=== PATIENT | female | born 2000 | race Two or more races ===

== ENCOUNTER 2025-02-09 14:32 | Emergency (ER) | payer SELFPAY ==
--- NOTE | ~2025-02-09 | XR_ITS ---
EXAMINATION: XR HAND, LEFT CLINICAL INFORMATION: laceration COMPARISON: None available. TECHNIQUE: PA, lateral, and oblique views of the left hand. FINDINGS: No fracture, dislocation, or suspicious bone lesion. There is normal alignment. There are normal joint spaces. No soft tissue abnormality or radiopaque foreign body. Bandaging material overlying the base of the thumb. XR/XR hand LT min 3V IMPRESSION: No acute bony or soft tissue abnormality. No radiopaque foreign body seen. Electronically signed by: Willem Mittal MD 02/09/2025 03:36 PM EDT
[2025-02-09 14:36] VITALS: BP 107/77; PULSE 100; RESP 18; TEMP 36.4; O2SAT 100; BMI 27.4
--- NOTE | 2025-02-09 14:37 | ED.SKABFB ---
HPI - Skin/Abscess/Foreign Bdy General Chief complaint: Wound/Laceration Stated complaint: L Hand Lac Time Seen by Provider: 02/09/25 22:10 Source: patient Mode of arrival: ambulatory Limitations: no limitations History of Present Illness ED Provider: Dr. Viki Ceballos HPI narrative: patient comes to the emergency room complaining of a laceration to the left hand. According to the patient, she was caring her son and at the symptoms she was trying to cut some things with some knives. Patient states that she did not realize how sharp the knives were. Patient accidentally lacerated the palmar and lateral aspect of the hand. Patient states that she has not Aware if she is up-to-date with her Tdap booster. Patient denies any other injuries. Related Data Allergies Allergy/AdvReac Type Severity Reaction Status Date / Time ibuprofen (From Motrin) Allergy Hives Verified 02/09/25 14:37 Review of Systems Review of Systems: Constitutional : No Weight loss, No Fever, No Chills, No Night Sweats, No Fatigue, No Malaise ENT/Mouth : No Hearing loss, No Ear Pain, No Nasal Congestion, No Sinus Pain, No Hoarseness, No sore throat, No Rhinorrhea, No Swallowing Difficulty Eyes: No Eye Pain, No Swelling, No Redness, No Foreign Body, No Discharge, No Vision Changes Cardiovascular : No Chest Pain, No SOB, No Dyspnea on Exertion, No Orthopnea, No Edema, No Palpitations Respiratory : No Cough, No Sputum, No Wheezing, No Smoke Exposure, No Dyspnea Gastrointestinal : No Nausea, No Vomiting, No Diarrhea, No Constipation, No abdominal Pain, No Hematochezia, No Melena Genitourinary : no irregular bleeding, No Dysuria, No Urinary Frequency, No Hematuria, No Urinary Incontinence, No Urgency, No Flank Pain, No Urinary Flow Changes, No Hesitancy Musculoskeletal : No joint pain, No Myalgias, No Joint Swelling Skin : Complaining of a laceration to the palmar / lateral aspect of the left hand Neuro : No Weakness, No Numbness, No Paresthesias, No Loss of Consciousness, No Dizziness, No Headache Psych : No Anxiety/Panic, No Depression, No SI/HI/AH/VH, No Social Issues, Heme/Lymph: No Bruising, No Bleeding,No Lymphadenopathy Endocrine : No Polyuria, No Polydipsia, No Temperature Intolerance PMFSH Social History Social History Advance Directives: No Advance Directives Information Provided: No Physical Exam Vital Signs: Vital Signs: Last Vital Signs Temp 98.3 F 02/09/25 21:14 Pulse 76 02/09/25 21:14 Resp 18 02/09/25 14:36 BP 96/59 L 02/09/25 21:14 Pulse Ox 98 02/09/25 21:14 O2 Del Method Room Air 02/09/25 21:14 BMI result Body Mass Index 27.4 Const: Other: Appearance: Alert. Oriented X3. No acute distress. Eyes: Pupils equal, round and reactive to light. ENT: Pharynx normal. Neck: Normal inspection. Neck supple. No lymph nodes noted. No crepitus CVS: Normal heart rate and rhythm. Pulses normal. Normal S1 and S2 Respiratory: No respiratory distress. Breath sounds normal. No Wheezing. No rales Abdomen: Soft and nontender. No rigidity. No distention. Skin: Skin warm and dry. Normal skin color. Normal skin turgor. patient has a laceration, 5 cm to the palmar/ lateral aspect of the left hand, there is some subcutaneous tissue. Extremities: No lower extremity edema. No Lacerations. No Rash . Patient is able to flex and extend all fingers, bleeding controlled. Neuro: Oriented X 3. No motor deficit. No sensory deficit. Moving all extremities. No slurred speech. CN 2 through 12 grossly intact Psych: calm, cooperative, normal affect Course Course Course Narrative: This is an RME: Additional HPI, ROS, PE not included below will be deferred to primary provider. RME assessment and note performed by: Ana Latif PA-C This is a [id number] who presents emergency department for evaluation of left hand laceration. Patient accidentally lacerated her left hand on a knife. Patient with full-thickness laceration noted to the palmar surface of her left hand, no obvious foreign body. Plan: Xray, tdap, wound repair Medications Administered Discontinued Medications Generic Name Dose Route Start Last Admin Trade Name Freq PRN Reason Stop Dose Admin Acetaminophen 975 mg 02/09/25 22:17 02/09/25 22:21 Acetaminophen 325 Mg Tablet PO 02/09/25 22:18 975 mg ONCE ONE Administration Diphtheria/Tetanus/Acell Pertussis 0.5 ml 02/09/25 14:38 02/09/25 21:24 Diphth,Pertus(Acell),Tet Adult 0.5 Ml Syringe IM 02/09/25 14:39 0.5 ml .ONCE ONE Administration Lidocaine HCl 10 ml 02/09/25 22:16 02/09/25 22:22 Lidocaine Hcl 1 % 20 Ml Vial INFILTRATI 02/09/25 22:17 10 ml ONCE ONE Administration Medical Decision Making Medical Decision Making MDM Narrative: Patient's hand/laceration was numbed with 1% lidocaine 10 mL, no epinephrine. Patient received 11 stitches Procedures Laceration Laceration 1: Site: hand Side (If applicable): left Size (cm): 5 Description: linear and irregular Depth: simple, single layer Local Anesthetic: lidocaine 1% Amount of anesthesia used (mL): 10 Pre-repair: wound explored and irrigated extensively Skin layer closed with: nylon Size (cm): 4-0 Number of sutures: 11 Technique: simple, interrupted Discharge Plan Discharge Clinical Impression: Laceration Patient Disposition: Home, Self-Care Instructions: Laceration (ED) Additional Instructions: your stitches need to be removed in 7-10 days. If you see any signs of infection such as pus, redness, or out of proportion pain, please return to the emergency room. Please follow-up with your primary care physician tomorrow. If you have any worsening or new symptoms, please return to the emergency room or call 911 Stand Alone Forms: Work/School Release Print Language: Mauritanian
--- OUTSIDE RECORDS SUMMARY | 2025-02-09 21:11 | XMS_ITS | Continuity of Care Document ---
Author Organization [facility]. If a dditional information is needed, contact Health Information Management at [phone] Address [address] [place] [address] Phone Care Team Providers Care Ethnic Studies Professor Name Role Phone Unavailable Unavailable Unavailable Unavailable Unavailable Unavailable Unavailable Unavailable Unavailable Unavailable Unavailable Unavailable Problems Hypokalemia Onset:20-Nov-2021 Felix Shae L APRNNP History of sexually transmit rosa disease Onset:20-Nov-2021 Felix Shae L APRNNP Sexually transmitted infecti ous disease Onset:20-Nov-2021 Felix Shae L APRNNP Onset:20-Nov-2021 Felix Shae L APRNNP Finding related to Onset:20-Nov-2021 Felix Shae L APRNNP Allergies and Adverse Reactions ibuprofen(Allergy) Onset: 20-Nov-2021 Reaction:HIVES Social History Smoking Status Never smoked tobacco Recorded: 20-Nov-2021
[2025-02-09 21:14] VITALS: BP 96/59; PULSE 76; TEMP 36.8; O2SAT 98
[2025-02-09] MEDS: Diphth,Pertus(ACell),Tet Adult 0.5 ML SYRINGE IM (21:24)
[2025-02-09] MEDS: Acetaminophen 325 MG TABLET 975 MG PO (22:21)
[2025-02-09] MEDS: Lidocaine HCl 1 % 20 ML VIAL 10 ML INFILTRATI (22:22)
[2025-02-09 23:32] VITALS: BP 100/56; PULSE 65; TEMP 36.8; O2SAT 98
[2025-02-09 23:34] VITALS: BP 100/56; PULSE 65; RESP 16; TEMP 36.8; O2SAT 98
== END 2025-02-09 23:35 | disposition home or self-care (01) ==
PROVIDERS: Emergency Provider Emergency Medicine
DX: S61.412A Laceration without foreign body of left hand, initial encounter (principal); M79.642 Pain in left hand; X58.XXXA Exposure to other specified factors, initial encounter; Y93.9 Activity, unspecified; Y92.9 Unspecified place or not applicable; Y99.8 Other external cause status; Z23 Encounter for immunization
CPT/HCPCS: 12002; 73130; 90471; 90715; 99283; 99284; J2003

== ENCOUNTER → 2025-02-09 14:38 | Outpatient (BNV) | payer SELFPAY | PROVIDERS: Visit Provider Radiology Diagnostic Radiology | DX: S61.412A Laceration without foreign body of left hand, initial encounter (principal) | CPT/HCPCS: 73130 ==

== ENCOUNTER 2025-08-04 18:39 | Emergency (ER) | payer MEDICAID, SELFPAY ==
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
[2025-08-04 18:54] VITALS: BP 134/92; PULSE 93; O2SAT 99
[2025-08-04 18:55] VITALS: BP 138/94; PULSE 91; RESP 20; TEMP 36.4; O2SAT 99; BMI 29.2
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
--- NOTE | 2025-08-04 19:08 | PC.NURSE ---
Patient in ED stretcher, brought to bathroom for privacy, placed on bedpan while in bathroom. Dr. Kovacs to evaluate the patient. Patient is currently menstruating, provided pericare & feminine hygiene pad. C-spine collar remains in place.
[2025-08-04 19:29] LABS: Appearance Urine Clear; Glucose Urine UA Negative (Negative); PH 7.5 (5.0-9.0); Specific Gravity - Urine 1.010 (1.005-1.025); UMIC TRIGGER UACC YES
[2025-08-04 20:10] LABS: UPreg QC Valid YES
[2025-08-04 20:29] VITALS: BP 121/77; PULSE 77; RESP 16; TEMP 36.7
--- OUTSIDE RECORDS SUMMARY | 2025-08-04 20:35 | XMS_ITS | Clinical Summary ---
Author Organization [facility] Address [facility] [place] [address] Care Team Providers Care [facility] Manager Name Role Phone None Primary Care Provider Unavailabl e Allergies Active Allergy Reactions Criticality Noted Date Comments Ibuprofen 12/21/2023 Medications ondansetron (Zofran) 4 mg tablet Take 1 tablet by mouth every 8 hours as needed for Nausea. 12 tablet 02/23/2024 Active hydrOXYzine (Atarax) 25 mg tablet Take 1 tablet by mouth every 6 hours as needed for Itching. 15 tablet 03/23/2025 Active Active Problems No known active problems Social History Tobacco Use Types Packs/Day Years Used Date Smoking Tobacco: Every Day Vaping Smokeless Tobacco: Never Tobacco Cessation:Ready to Q uit: Not Asked; Counseling Given: Not Answered Alcohol Use Standard Drinks/Week Comments Yes 0 (1 standard drink = 0.6 oz pur e alcohol) once a month DH IPV Inpatient Questions Answer Date Recorded Does Anyone Try to Keep You From Having Contact with Others or Doing Things Outside Your Home? no 03/23/2025 Feels Threatened by Someone no 11/2024 Feels Unsafe at Home or Work/School no 03/23/2025 Physical Signs of Abuse Present no 03/23/2025 Comments Unknown Sex and Gender Information Value Date Recorded Sex Assigned at Not on file Legal Sex Female 6:21 PM EDT Gender Identity Not on file Sexual Orientation Not on file Last Filed Vital Signs Vital Sign Reading Time Taken Comments Blood Pressure 123/81 03/23/2025 5:22 PM EDT Pulse 101 03/23/2025 5:22 PM EDT Temperature 37 C (98.6 F) 03/23/2025 5:22 PM EDT Respiratory Rate 16 03/23/2025 5:22 PM EDT Oxygen Saturation 99% 03/23/2025 5:22 PM EDT Inhaled Oxygen Concentration - - Weight 68.9 kg (152 lb) 03/23/2025 5:55 PM EDT Height 160 cm (5' 3 ) 03/23/2025 5:55 PM EDT Body Mass Index 26.93 03/23/2025 5:55 PM EDT Plan of Treatment Health Maintenance Due Date Last Done Comments HPV vaccine (1 - 3-dose series) 2015 HIV screen 2018 Hepatitis C Screening 2018 Lipid Screening 2018 Hepatitis B vaccine (0-59 yrs) and Risk (1) 2019 Pneumococcal Vaccine: At-Risk 5-49yrs (1 of 2 - PCV) 0 2019 Tetanus/Diphtheria/Pertussis Vaccines (1 - Tdap) 10/09 PAP Smear 2021 Chlamydia Screening 12/20/2024 12/21/2023 Covid-19 Vaccine (1 - 2024- season) 2025 Influenza (Flu) vaccine (1 o f 1 - Influenza standard series) 04/20/2025 Procedures Procedure Name Priority Date/Time Associated Diagnosis Comments GC/CHLAMYDIA STAT 12/21/2023 10:16 PM EDT from Last 3 Months or Most Recently Relevant to Health Maintenance Results * GC/Chlamydia Vaginal (12/21/2023 10:16 PM EDT) GC Gene Amp Negative Negative [facility] Comment: Eye specimens are not an FDA-cleared source for this testing. The performance of this assay with eye specimens has been validated in-house. GC Source Vaginal [facility] Chlamydia Gene Amp Negative Negative [facility] Comment: Eye specimens are not an FDA-cleared source for this testing. The performance of this assay with eye specimens has been validated in-house. Chlm Source Vaginal [facility] Vaginal 12/21/2023 10:1 6 PM EDT 12/22/2023 6:05 PM EDT Narrative Resulting Agency Comment Spec In Lab us Cris Meyers MD MICROBIOLOGY - GENERAL ORDERABLE S Final Result [facility] [place] [address] from Last 3 Months or Most Recently Relevant to Health Maintenance Care Teams [facility] Manager Relationship Specialty Start Date End Date None None PCP - General 12/21/23
[2025-08-04 21:01] VITALS: BP 121/77; PULSE 77; RESP 16; TEMP 36.7; O2SAT 96
== END 2025-08-04 21:01 | disposition home or self-care (01) ==
PROVIDERS: Emergency Provider Emergency Medicine
DX: S00.83XA Contusion of other part of head, initial encounter (principal); V43.52XA Car driver injured in collision with other type car in traffic accident, initial encounter; Y93.9 Activity, unspecified; Y92.488 Other paved roadways as the place of occurrence of the external cause; R68.84 Jaw pain
CPT/HCPCS: 70450; 70486; 72125; 81001; 81025; 99283; 99284

== ENCOUNTER → 2025-08-04 19:18 | Outpatient (BNV) | payer MEDICAID, SELFPAY | PROVIDERS: Emergency Provider Emergency Medicine; Visit Provider Student in an Organized Health Care Education/Training Program | DX: M54.2 Cervicalgia (principal); R68.84 Jaw pain; R51.9 Headache, unspecified; V89.2XXA Person injured in unspecified motor-vehicle accident, traffic, initial encounter | CPT/HCPCS: 70450; 70486; 72125 ==